=== PATIENT | female | born 2000 | race African-American/Black ===

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

== ENCOUNTER 2020-02-07 11:17 | Outpatient (CLI) | payer BC ==
--- NOTE | 2020-02-07 14:06 | RAD ---
RIGHT KNEE 4 VIEWS: HISTORY: Knee pain. COMPARISON: 06/29/2016. FINDINGS: Joint spaces are normally maintained. No fracture or osseous abnormality. No evidence of joint effu emma. IMPRESSION: Unremarkable right knee. POS: [facility]
== END 2020-02-07 11:18 | disposition home or self-care (01) ==
LOC: MADRAD 11:17
PROVIDERS: ATTEND Family Medicine
DX: M25.561 Pain in right knee (principal)

== ENCOUNTER 2020-07-29 10:01 | Outpatient (CLI) | payer BC ==
--- NOTE | 2020-07-29 12:32 | ULT ---
TRANSABDOMINAL AND TRANSVAGINAL PELVIC ULTRASOUND WITH DOPPLER: DATE: 07/29/2020. PROVIDED CLINICAL HISTORY: Menometrorrhagia. FINDINGS: Comparison is made with the study dated 09/28/2018. The uterus measures about 11.5 x 6.1 x 4.6 cm. Endometrial thickness is about 1 cm. The myometrium appears unremarkable. Cervical nabothian cysts are seen. The right and left ovaries demonstrate numerous follicles, which are somewhat peripherally arrayed. Color Doppler and spectral analysis of the ovarian waveforms demonstrates normal flow bilaterally. There is no evidence for significant free pelvic fluid. The right ovary measures about 4.3 x 2.4 x 2.8 cm. The left ovary measures about 3.2 x 2.2 x 2.3 cm. IMPRESSION: Numerous bilateral ovarian follicles, somewhat peripherally arrayed. Correlate with concerns for andrey ycystic ovarian syndrome. POS: [facility]
== END 2020-07-29 10:02 | disposition home or self-care (01) ==
LOC: MADRAD 10:01
PROVIDERS: ATTEND Family Medicine
DX: N92.1 Excessive and frequent menstruation with irregular cycle (principal)
CPT/HCPCS: 76856

== ENCOUNTER 2020-10-29 11:32 | Outpatient (CLI) | payer BC ==
[~2020-10-29 11:32] MED LIST changes: +Iopamidol 370 76% 100 ML VIAL ONE; -Ketorolac Tromethamine 30 MG/ML VIAL ONE; -Ondansetron HCl/PF 4 MG/2 ML Vial ONE; -Sodium Chloride 0.9% 1,000 ML BAG ONE
--- NOTE | 2020-10-29 12:59 | CT ---
CT abdomen and pelvis with IV contrast. Oral contrast was not administered. INDICATIONS: Abdominal pain COMPARISON: None FINDINGS: Lung bases are clear Liver, spleen, and pancreas appear unremarkable. Stomach and duodenum appear unremarkable. Adrenal glands appear normal. Kidneys appear unremarkable. Collecting structures and urinary bladder appear unremarkable. Bladder i s contracted and not well evaluated. Small bowel loops are normal caliber and exhibit normal fold pattern. Appendix is identified and appears unremarkable. Large amount of stool in a dilated rectum which measures up to 9 cm diameter suggests fecal impaction . Aorta is normal caliber. No evidence of retroperitoneal or mesenteric adenopathy. Pelvic structures appear unremarkable. Subcutaneous tissues, abdominal wall, and muscular structures appear unremarkable. Osseous structures appear unremarkable. IMPRESSION: Large amount of stool in a dilated rectum suggesting fecal impaction. Otherwise no acute process.
== END 2020-10-29 11:33 | disposition home or self-care (01) ==
LOC: MADRAD 11:32
PROVIDERS: ATTEND Family Medicine
DX: R10.13 Epigastric pain (principal)
CPT/HCPCS: 74177; Q9967

== ENCOUNTER 2021-05-15 20:40 | Outpatient (CLI) | payer BC | END 2021-05-15 20:41 | disposition home or self-care (01) | LOC: MADLABBHPM 20:40 | PROVIDERS: ATTEND Family Medicine | DX: R06.02 Shortness of breath (principal); R53.83 Other fatigue | CPT/HCPCS: 71046; 84443 ==